=== PATIENT | female | born 1955 | race Caucasian/White ===

== ENCOUNTER 2017-11-21 05:31 | Day surgery (SDC) | payer OTHER ==
[~2017-11-21] VITALS: Ht 172.7 cm; Wt 168.7 kg
--- NOTE | ~2017-11-21 | EKG ---
[address] [address] ELECTROCARDIOGRAM REPORT Name: ANJELICA AFGAN Room #: 150-4 [facility]#: [id number] Admission: 11/21/17 Attend Phys: Meng Senior MD Discharge: Date of : 53 Report #: [id number] THIS REPORT FOR: //name// [facility] Test Date: 2017-11-21 Test Time: 06:26:33 Pat Name: ANJELICA FAGAN Department: Room: 150 4 Gender: F Puller Out: [place] : 1955 Requested By: eMng Senior Order Number: [id number] MD: Varinder Claire Measurements Intervals [place] Rate: 66 P: -27 HI: 172 QRS: -22 QRSD: 88 T: 5 QT: 389 QTc: 408 Interpretive Statements Sinus rhythm Consider left atrial enlargement Left ventricular hypertrophy Compared to ECG 04/17/2008 08:02:18 Left ventricular hypertrophy now present Poor R-wave progression no longer present Electronically Signed On 11-21-2017 8:01:38 CDT by Varinder Claire [email or web address] <ELECTRONICALLY SIGNED> By: Varinder Claire MD 11/21/17800 5 5 Varinder Claire MD /KATHERINE
--- NOTE | ~2017-11-21 | O ---
[facility] [place] [address] OPERATIVE REPORT Name: ANJELICA FAGAN Room #: DEP [facility].#: [id number] Admission: 11/21/17 Attend Phys: Meng Senior MD Discharge: 11/21/17 Date of : 53 Report #: [id number] THIS REPORT FOR: //name// CC: Meng Travis PREOPERATIVE DIAGNOSIS: Left renal stone. POSTOPERATIVE DIAGNOSIS: Left renal stone. PROCEDURE: Cystoscopy, left retrograde pyelogram, left ureteroscopy and stent placement. SURGEON: Meng Senior M.D. ANESTHESIA: General. INDICATIONS: The patient is a delightful 62-year-old woman with a left renal calculus. She has had stones in the past. I have discussed treatment options with her, which include percutaneous nephrostomy, endoscopic management and lithotripsy. Due to her body habitus, she has opted for endoscopic management. Risks, benefits, complications have been discussed. She understands risk of bleeding and infection. She understands complications could occur, which may not have been foreseen or discussed. Issues related to stent placement, stent removal have been discussed as well. DESCRIPTION OF PROCEDURE: After obtaining informed consent, she was brought to the operating room. IV antibiotics were administered. A timeout was performed. She was prepped and draped in lithotomy position by the operating personnel under anesthesia supervision. After introduction of general anesthetic, the preliminary fluoroscopic images showed an opacification overlying the left kidney. I had difficulties inserting the cystoscope. I dilated the urethra with 26-Prydeinig with the Carlos sounds. A 22-Prydeinig Olympus cystoscope was introduced under direct vision. The bladder was smooth walled with no intrinsic mucosal lesions. The trigone and ureters were normal in configuration and location. I placed two 0.35 ZIPwire to the left renal pelvis. Over one of the wires, I placed a 12 x 14-Prydeinig 35 cm ureteral access sheath with no difficulty. I then removed one of the wires leaving the second wire as a safety wire. I then placed the digital ureteroscope through the lumen of the access sheath into the kidney. I examined the upper and mid pole and lower pole calyceal systems, and there was no obvious stone. I then injected contrast. She did not have a bifid system, and I was able to access her entire collecting system. I examined the entire lumen of the collecting system, and it was clear. The opacification on x-rays was not intraluminal and was clearly intraparenchymal. At this point, I felt imprudent to proceed. Therefore, I withdrew the ureteroscope and the access sheath and placed a 6-Prydeinig x 28 cm Contour stent on a dangler. The proximal curls overlying the left kidney. The [address] [address] OPERATIVE REPORT Name: ANJELICA FAGAN Kate Room #: DEP [facility]#: [id number] Admission: 11/21/17 Attend Phys: Meng Senior MD Discharge: 11/21/17 Date of : 53 Report #: [id number] distal curl was in the bladder. Bladder was drained, and she was transferred to the recovery room where she arrived in stable condition. I confirmed stent placement both cystoscopically and radiographically. <ELECTRONICALLY SIGNED> By: Meng Senior MD 11/22/17 0722 0850 0930 Meng Senior MD /nt
[~2017-11-21 05:31] MED LIST: ATIVAN0.5 MG PO; BENADRYL25 MG PO; BENTONITE500 GM PO; GUMMI BEAR MUL1 EAC1 PO; HYDROCHLOROTHIA25 M2 PO; HYDROCODONE-AP1 EAC6 PO; IBUPROFEN 200200 M1 PO; LEVAQUIN 500 M50012 PO; LOPRESSOR50 PO; NORCO 5-325 TA1 EACH PO; POTASSIUM GLUCO90 MG PO; POTASSIUM GLUCONATE PO; TOPROL XL50 MG PO; TYLENOL325 MG PO; VENTOLIN HFA 1818 GM INH; VITAMIN D2000 UNIT PO; VITAMIN D31000 UNI2 PO; ZOFRAN ODT4 M1 PO; [UNRECOGNIZED DRUG - OTHER] PO
[2017-11-21 06:27] LABS: CALCIUM 9.5 mg/dL (8.5-10.1); CREATININE 0.9 mg/dL (0.6-1.0)
[2017-11-21 07:08] VITALS: BP 150/79
[2017-11-21 09:03] VITALS: BP 150/79
== END 2017-11-21 10:05 | disposition home or self-care (01) ==
LOC: TBA 05:31 → OR 05:31 → TBA 05:33 → OR 10:05
PROVIDERS: Specialist
DX: N20.0 Calculus of kidney (principal); I10 Essential (primary) hypertension; F41.9 Anxiety disorder, unspecified; F32.9 Major depressive disorder, single episode, unspecified; Z87.442 Personal history of urinary calculi; Z90.49 Acquired absence of other specified parts of digestive tract; Z98.890 Other specified postprocedural states; Z79.899 Other long term (current) drug therapy; Z88.8 Allergy status to other drugs, medicaments and biological substances
CPT/HCPCS: 50010; 50101; 51620; 51767; 53331; 56815; 62110; 62900; 70005